=== PATIENT | female | born 1995 | race Caucasian/White ===

== ENCOUNTER 2020-01-30 09:34 | Emergency (ER) | payer MEDICAID ==
[~2020-01-30] VITALS: Ht 157.5 cm; Wt 66.2 kg
[2020-01-30 09:42] VITALS: Ht 157.5 cm; Wt 66.2 kg
[2020-01-30 10:10] LABS: microscopic required? YES; urine erythrocyte NEGATIVE (NEGATIVE)
[2020-01-30 10:21] LABS: CALCIUM 8.9 mg/dL (8.5-10.1); CARBON DIOXIDE 26.1 mmol/L (21-32); CHLORIDE SERUM 104 mmol/L (98-107); CREATININE SERUM 0.7 mg/dL (0.6-1.0); GFR1 > 60 mL/min; GLUCOSE SERUM 106 mg/dL (74-106); POTASSIUM SERUM 3.7 mmol/L (3.5-5.1); SODIUM SERUM 137 mmol/L (136-145)
[2020-01-30 10:31] LABS: PLATELET COUNT 232 x10^3mcL (130-400); RED CELL DISTRIBUTION WIDTH 14.1 % (11.5-14.5)
[2020-01-30 11:19] LABS: BAND NEUTROPHIL 13 % (0-10); BASOPHIL 0 % (0-2); MONOCYTE 4 % (0-7); PLATELET MORPHOLOGY PLATELETS NORMAL; SEGMENTED NEUTROPHILS 65 % (37-75); rbc morphology (normal/abnorm) NORMAL (NORMAL)
[2020-01-30 12:24] VITALS: BP 103/55
== END 2020-01-30 12:24 | disposition home or self-care (01) ==
LOC: ED 09:34
PROVIDERS: Emergency Medicine
DX: O98.811 Other maternal infectious and parasitic diseases complicating pregnancy, first trimester (principal); R82.71 Bacteriuria; R31.9 Hematuria, unspecified; Z3A.11 11 weeks gestation of pregnancy; Z90.89 Acquired absence of other organs
CPT/HCPCS: Q0092

== ENCOUNTER 2020-04-21 21:51 | Emergency (ER) | payer MEDICAID ==
[~2020-04-21] VITALS: Ht 157.5 cm; Wt 71.8 kg
[2020-04-21 22:16] VITALS: Ht 157.5 cm; Wt 71.8 kg
[2020-04-22 00:25] VITALS: BP 120/78
== END 2020-04-22 00:25 | disposition home or self-care (01) ==
LOC: ED 21:51
DX: O26.892 Other specified pregnancy related conditions, second trimester (principal); R10.33 Periumbilical pain; Z90.89 Acquired absence of other organs; Z3A.21 21 weeks gestation of pregnancy